=== PATIENT | female | born 1945 | race Caucasian/White ===

== ENCOUNTER 2016-12-12 08:46 | Day surgery (SDC) | payer OTHER, BC ==
[2016-12-12 09:27] VITALS: BMI 41.5
[2016-12-12] MEDS ORDERED: PROPOFOL 20 ML ONE ×4 (09:31→10:21)
[2016-12-12 10:35] VITALS: TEMP 97.7
[2016-12-12 11:23] VITALS: BP 116/55; PULSE 60
--- NOTE | 2016-12-13 12:33 | PATH ---
Surgical Pathology Report Patient Name: NAVJOT CAMILO Med. Rec. #: [id number] /Age/Gender: 1945 (Age: 71) / F Account: [id number] Location: [facility] Taken: 12/12/2016 Received: 12/12/2016 Reported: 12/13/2016 Physicians: Magdiel Ortega M.D. Specimen(s) Received BX CECAL POLYP Clinical History Adenoma surveillance Diverticulosis, polyp Final Diagnosis COLON, CECUM, BIOPSY: TUBULAR ADENOMA. Electronically Signed Dennis Farias M.D. Gross Description Received in formalin, labeled "biopsy cecal polyp" are 2 navarro, irregular portions of soft tissue averaging 0.3 cm. in greatest dimension. The specimens are submitted in toto in one cassette. 12/12/201612/12/2016
== END 2016-12-12 11:15 | disposition home or self-care (01) ==
LOC: JASU-ENDO 08:46
PROVIDERS: ATTEND Internal Medicine Gastroenterology
PROC: 0DBH8ZX Excision of Cecum, Via Natural or Artificial Opening Endoscopic, Diagnostic (ICD-10-PCS; principal; 2016-12-12 10:00)
DX: Z86.010 Personal history of colon polyps (principal); D12.0 Benign neoplasm of cecum; K57.30 Diverticulosis of large intestine without perforation or abscess without bleeding
CPT/HCPCS: 88305-TC

== ENCOUNTER 2020-07-08 05:36 | Day surgery (SDC) | payer OTHER ==
[2020-07-06 15:32] VITALS: BMI 45.2
[2020-07-08 08:52] VITALS: TEMP 97.8
[2020-07-08 09:55] VITALS: BP 137/52; PULSE 61
== END 2020-07-08 10:02 | disposition home or self-care (01) ==
LOC: JASU-ENDO 05:36
PROVIDERS: ATTEND Internal Medicine Gastroenterology
PROC: 0DBL8ZX Excision of Transverse Colon, Via Natural or Artificial Opening Endoscopic, Diagnostic (ICD-10-PCS; principal; 2020-07-08 08:00)
DX: Z09 Encounter for follow-up examination after completed treatment for conditions other than malignant neoplasm (principal); Z86.010 Personal history of colon polyps; D12.3 Benign neoplasm of transverse colon; I10 Essential (primary) hypertension; K57.30 Diverticulosis of large intestine without perforation or abscess without bleeding; K56.609 Unspecified intestinal obstruction, unspecified as to partial versus complete obstruction
CPT/HCPCS: 88305-TC

== ENCOUNTER 2021-04-29 04:50 | Day surgery (SDC) | payer OTHER ==
[2021-04-29 12:38] VITALS: BMI 42.2
[2021-04-29 14:30] VITALS: TEMP 97.1
[2021-04-29 15:27] VITALS: BP 142/66; PULSE 55
== END 2021-04-29 15:28 | disposition home or self-care (01) ==
LOC: JASU-ENDO 04:50
PROVIDERS: ATTEND Internal Medicine Gastroenterology
PROC: 0DB78ZX Excision of Stomach, Pylorus, Via Natural or Artificial Opening Endoscopic, Diagnostic (ICD-10-PCS; principal; 2021-04-29 13:00)
DX: K25.9 Gastric ulcer, unspecified as acute or chronic, without hemorrhage or perforation (principal); K29.50 Unspecified chronic gastritis without bleeding; E66.01 Morbid (severe) obesity due to excess calories; I10 Essential (primary) hypertension

== ENCOUNTER 2024-01-05 09:31 | Day surgery (SDC) | payer OTHER ==
[2024-01-05 10:12] VITALS: RESP 16; BMI 43.4
[2024-01-05 11:37] VITALS: TEMP 97.3
[2024-01-05 11:40] VITALS: BP 125/69; PULSE 60
== END 2024-01-05 12:00 | disposition home or self-care (01) ==
LOC: FASU-ENDO 09:31
PROVIDERS: ATTEND Internal Medicine Gastroenterology
PROC: 0DB68ZX Excision of Stomach, Via Natural or Artificial Opening Endoscopic, Diagnostic (ICD-10-PCS; 2024-01-05)
PROC: 0DB48ZX Excision of Esophagogastric Junction, Via Natural or Artificial Opening Endoscopic, Diagnostic (ICD-10-PCS; 2024-01-05)
PROC: 0DB98ZX Excision of Duodenum, Via Natural or Artificial Opening Endoscopic, Diagnostic (ICD-10-PCS; principal; 2024-01-05 10:41)
DX: K29.50 Unspecified chronic gastritis without bleeding (principal); K21.00 Gastro-esophageal reflux disease with esophagitis, without bleeding; K20.90 Esophagitis, unspecified without bleeding; R93.3 Abnormal findings on diagnostic imaging of other parts of digestive tract; Z87.19 Personal history of other diseases of the digestive system
CPT/HCPCS: 88305-TC; 88342-TC